=== PATIENT | male | born 1935 | race Caucasian/White ===

== ENCOUNTER 2020-07-16 15:23 | Outpatient (RCR) | payer MEDICARE, SELFPAY | END 2020-07-16 23:59 | LOC: IMMUN 15:23 | PROVIDERS: Referring Provider Family Medicine; Visit Provider Family Medicine | DX: Z23 Encounter for immunization (principal) | CPT/HCPCS: 0011A; 0012A ==

== ENCOUNTER 2021-08-19 15:33 | Outpatient (CLI) | payer MEDICARE, SELFPAY ==
--- NOTE | 2021-08-19 15:39 | CT_ITS ---
ACR Level 3 findings have been noted. An addendum which confirms receipt of the report will follow. STUDY: CT SOFT TISSUE NECK WITH CONTRAST REASON FOR EXAM: Male, 85 years old. SQUAMOUS CELL CARCINOMA L CHEEK RADIATION DOSAGE (If Supplied By Facility): CTDIvol = ( 20.03 ) mGy, DLP = ( 585.53 ) mGycm TECHNIQUE: The patient was scanned in a multi-detector CT scanner. High resolution transaxial imaging was performed following intravenous administration of IV 75mL Isovue-300. Sagittal and coronal images were reconstructed. Individualized dose optimization techniques were used for this CT. COMPARISON: None. FINDINGS: Normal bilateral parotid glands. Normal bilateral commercial lending vice president spaces. Normal bilateral parapharyngeal spaces. Normal bilateral carotid spaces. Normal bilateral sublingual and submandibular glands and spaces. Normal visualized nasopharynx. Normal retropharyngeal space. Normal perivertebral space. There are multiple calcifications within the right-sided tonsils best demonstrated image 45 coronal views. There are at least 10 tonsillar calcifications ranging from punctate to 4.1 mm. There are few punctate 1''s on the left side. Is mild enlargement of the right tonsillar tissue compared to the left. The visualized tongue, tongue base and oropharynx are normal. There is no visualized large necrotic lymph node. There are a few small symmetric subcentimeter lymph nodes. There is no demonstrated solid or cystic mass lesion within the neck soft tissues. There is no abnormal contrast enhancement. Normal epiglottis, bilateral vallecula and hypopharynx. The pre-epiglottic and paraglottic adipose spaces are normal. Normal visualized bilateral piriform sinuses, aryepiglottic folds, vocal cords, and arytenoid-cricoid articulations. Normal subglottic trachea. Normal bilateral lobes of the thyroid gland. There is an abnormal pulmonary nodule in the left upper lobe spiculated borders highly suspicious for either primary lung carcinoma or metastatic disease. It measures 1.4 x 1.9 x 1.7 cm. Normal visualized paranasal sinuses. There is multilevel degenerative changes of the cervical spine. There is multilevel disc space narrowing and facet arthropathy mild to moderate neural foraminal narrowing. There is visualized atherosclerotic disease of the aorta. There is calcification of the bilateral carotid bulbs with at least 50% narrowing of the right internal carotid artery allowing for technique. There is less than 50% stenosis of the left internal carotid artery. 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 There is no visualized significant asymmetry of the soft tissues or skin. There is no visualized visible drainable mass. CT/Soft Tissue Neck WITH Contrast IMPRESSION: There is an abnormal pulmonary nodule in the left upper lobe spiculated borders highly suspicious for primary lung carcinoma or metastatic disease. It measures 1.4 x 1.9 x 1.7 cm. Recommend consideration for CT scan of the chest for further clarification and/or PET scan. 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 There is no visualized significant asymmetry of the soft tissues or skin. There is no visualized visible drainable mass. Degenerative change of the cervical spine. No visualized acute fracture. Multiple right greater than left tonsillar calcifications. Pending Final Proof Editing
[2021-08-19 16:01] LABS: CREATININE FINGERSTICK 0.8 mg/dL (0.70-1.30); EGFR FINGERSTICK > 60.0000 mL/min (>60)
== END 2021-08-19 23:59 | disposition home or self-care (01) ==
PROVIDERS: Visit Provider Otolaryngology
DX: C76.0 Malignant neoplasm of head, face and neck (principal)
CPT/HCPCS: 70491; Q9967

== ENCOUNTER 2021-08-29 07:16 | Day surgery (SDC) | payer MEDICARE, SELFPAY ==
--- NOTE | 2021-08-29 | LES_PTH ---
PATIENT: MARGI PÉREZ LOC: [facility] [place] U#:[id number] AGE/SX: 85/M ROOM: RE08/29/[address]: Dr. Jesus Antonio MD : 1935 BED: DIS: 08/29/2021 SPEC #: [id number] RECD: 08/29/21 09:19 STATUS: PROSPER MERRY #: [id number] MARVIN: 08/29/21 00:[address]: Jesus Antonio DEPT: SURGICAL PATHOLOGY RECD BY: Flakita Palmer ENTERED: 08/29/21 10:02 SP TYPE: Lesion OTHR DR: Dr. 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 Left cheek squamous cell carcinoma, FS, short suture at 12 o?clock, superior, long suture at 3 o?clock, posterior, B ? Left neck biopsy, FS, short suture at 12 o?clock, superior, long suture at 3 o?clock, posterior, C ? Right nasal incisional biopsy FROZEN SECTION DIAGNOSIS A. Left cheek lesion, excision: Negative for residual carcinoma. FRANCY:south 08/29/2021 Case has been reviewed in consultation with Dr. Corbin who concurs with the above diagnosis. IDC:KATHLEEN B. Left neck lesion, excision: Actinic keratosis and extensive solar elastosis. FRANCY/KATHLEEN:south 08/29/2021 MICROSCOPIC DIAGNOSIS A. Left cheek lesion, biopsy: Actinic keratosis with focal moderate atypia. No evidence of carcinoma. See comment. B. Left neck skin lesion, biopsy: Cicatrix with nonpolarizable material and benign histiocytic reaction. Actinic change and solar elastosis. C. Right nasal lesion, incisional biopsy: Basal cell carcinoma. See comment. KATHLEEN:south 08/30/2021 COMMENT A. Margins of excision are free of dysplasia and/or atypia. C. The lesion is incompletely excised. Clinical correlation is suggested. MICROSCOPIC DESCRIPTION Slides are reviewed. GROSS DESCRIPTION A - Received fresh for frozen section diagnosis labeled with the patient's name is a specimen designated left cheek lesion. The specimen consists of a piece of cheema-white skin ellipse measuring 2.2 x 1 cm and up to 0.3 cm in thickness. The specimen is oriented as follows: short stitch ? 12 o?clock superior, long stitch 3 o?clock posterior. The specimen is inked as follows: 12 o?clock tip ? yellow, 6 o?clock tip ? green, 3 o?clock margin ? black and 9 o?clock margin ? blue. The specimen is serially sectioned and submitted entirely for frozen section diagnosis in two cassettes as follows: 1 ? tip, 2 ? rest of the specimen. / SJ:south 08/29/21 B - Received fresh for frozen section diagnosis labeled with the patient's name is a specimen designated left neck biopsy. The specimen consists of a cheema-white skin ellipse measuring 1.3 x 0.5 x 0.2 cm. The specimen is oriented as follows: short stitch ? 12 o?clock superior, long stitch 3 o?clock posterior. The specimen is inked as follows: 12 o?clock tip ? yellow, 6 o?clock tip ? green, 3 o?clock margin ? black and 9 o?clock margin ? blue. The specimen is serially sectioned and submitted entirely for frozen section diagnosis in one cassette. / SJ:south 08/29/21 C - Received in fixative is one container labeled with the patient's name and designated right nasal incisional biopsy. The specimen consists of a piece of cheema soft tissue measuring 0.3 x 0.1 x 0.1 cm. The entire specimen is submitted in one cassette. / SJ:south 08/29/2021 TC:0 CPT: 89865 x3, 00937 x2, 82517 x1
[2021-08-29 08:02] VITALS: BP 169/72; PULSE 52; RESP 16; TEMP 36.6; O2SAT 97; BMI 29.7
[2021-08-29 08:16] LABS: Bedside Glucose 234 mg/dL (74-106)
[2021-08-29] MEDS: BACITRACIN/POLYMYXIN B 15 GM Tube 1 APPLIC (09:35)
[2021-08-29] MEDS: Lidocaine 1% /Epi 1:100 (50ml) 50 ML VIAL (09:35)
--- NOTE | 2021-08-29 10:00 | PCM.DC.SUM ---
Providers Primary Care Physician: Dr. Va Avalos DO Reason For Visit: EXCISION SQUAMOUS CELL LT CHEEK Medications at Discharge Home Medications amlodipine 5 mg PO QHS 08/22/21 aspirin [Aspir-81] 81 mg PO DAILY 08/22/21 carvedilol 25 mg PO BID 08/22/21 glipizide 10 mg PO BID 08/22/21 lisinopril 40 mg PO DAILY 08/22/21 metformin 1,000 mg PO BID 08/22/21 simvastatin 40 mg PO QHS 08/22/21 terazosin 10 mg PO QHS 08/22/21 Weight / BMI Weight Weight: 93.9 kg Body Mass Index (BMI) 29.7 ABG / Lab / Microbiology Data Laboratory: Laboratory Results - last 24 hr 08/29/21 08:10: POC Glucose 234 H D/C Instructions Discharge Diet: No restrictions Discharge Activity: Return to Normal Activity Additional Dressing/Incision Instructions: Remove dressing on 08/30/21. Apply antibiotic ointment 3x/day to the sutures. May get the sutures wet on Sunday. Please Follow Up With: Jesus Antonio MD When: 10 days Meaningful Use Info Meaningful Use Diagnoses (Choose all that apply): None applicable Discharge Plan Admission Attending Provider: Jesus Antonio Primary Care Provider: Va Avalos Discharge Orders/Prescriptions Prescriptions: No Action carvedilol 25 mg Tablet 25 mg PO BID RF: 0 glipizide 10 mg Tablet 10 mg PO BID RF: 0 amlodipine 5 mg Tablet 5 mg PO QHS RF: 0 aspirin [Aspir-81] 81 mg Tablet,Delayed Release (Dr/Ec) 81 mg PO DAILY RF: 0 simvastatin 40 mg Tablet 40 mg PO QHS RF: 0 metformin 1,000 mg Tablet 1,000 mg PO BID RF: 0 lisinopril 40 mg Tablet 40 mg PO DAILY RF: 0 terazosin 10 mg Capsule 10 mg PO QHS RF: 0
--- NOTE | 2021-08-29 10:02 | PCM.OPRPT ---
Report of Operation Date of Procedure: 08/29/21 Pre-Operative Diagnosis: squamous cell carcinoma left pre auricular ulcer left neck neoplasm right nose Post-Operative Diagnosis: same Surgery/Procedure Performed:: 1.excision squamous cell carcinoma left preauricular area (2.8 x 1 cm); Intermediate repair 2. excision ulcer left neck (1.4 x .9 cm); intermediate repair 3. Incisional biopsy right nose Surgeon: Jesus Antonio Type of Anesthesia: Local Estimated Blood Loss (mL): minimal Description of Procedure: The patient was taken to the operating room on 08/29/2021. He was placed in the supine position on the operating room table. The right nose and left neck and preauricular area were prepped and draped sterilely. 1% lidocaine with epinephrine injected into the skin surrounding the intended incision sites. After sufficient vasoconstriction, an elliptical incision was made around the previously excised squamous cell carcinoma on the preauricular area. This was excised in an ellipse with a 15 blade. The lesion was marked with suture for orientation. Hemostasis was achieved with bipolar cautery. I then undermined circumferentially with iris scissors. Frozen came back as clear margins. The wound was then closed with 4-0 Vicryl for sutures and 6-0 running nylon for the skin. Next, the right neck ulcer was excised in an ellipse with a 15 blade. Hemostasis was achieved with bipolar cautery. The specimen was marked with suture and sent for frozen section. Frozen section came back as actinic changes without carcinoma. That incision was then closed with 4-0 Vicryl deep and 6-0 nylon for the skin. A pressure dressing was then applied. The right nasal lesion was addressed with a 15 blade. A small piece out of the middle of the neoplasm was taken and sent for permanent section. He was stasis was achieved with bipolar cautery. Antibiotic ointment was applied to the nose. Patient was then removed from the operating room and brought to the recovery room in stable condition. blood loss, minimal replacement none. sponge and instrument correct the end of procedure.
[2021-08-29 10:12] VITALS: BP 169/72; BP 171/91; PULSE 51; RESP 16; TEMP 36.6; O2SAT 97
== END 2021-08-29 23:59 | disposition home or self-care (01) ==
LOC: SDC 07:17 → AC 07:19
PROVIDERS: Referring Provider Otolaryngology; Visit Provider Otolaryngology
PROC: (CPT 11622; principal; 2021-08-29 08:50)
DX: C44.42 Squamous cell carcinoma of skin of scalp and neck (principal); C44.229 Squamous cell carcinoma of skin of left ear and external auricular canal; Z79.82 Long term (current) use of aspirin; Z79.899 Other long term (current) drug therapy; Z79.84 Long term (current) use of oral hypoglycemic drugs; Z87.891 Personal history of nicotine dependence; L90.5 Scar conditions and fibrosis of skin
CPT/HCPCS: 11622; 11106; 12042; 11642; 12052; 82962; 88305; 88331; 88332; J7120; A4216

== ENCOUNTER 2021-09-01 07:51 | Outpatient (CLI) | payer MEDICARE, SELFPAY ==
[2021-08-29 08:29] LABS: Prothrombin Time (Protime)PT. 12.7 SECONDS (11.7-14.9)
[2021-08-29 08:30] LABS: Partial Thromboplast Time 30.8 Seconds (24.1-36.2)
[2021-09-01] VITALS (12 sets, daily range): BP systolic 129–196; BP diastolic 63–86; PULSE 50–57; RESP 10–16; TEMP 36.1; O2SAT 94–98; BMI 29.5
--- NOTE | 2021-09-01 | IMM_PTH ---
PATIENT: MARGI PÉREZ LOC: CT U#:[id number] AGE/SX: 85/M ROOM: RE09/01/[address]: Dr. Jesus Antonio MD : 1935 BED: DIS: 09/01/2021 SPEC #: [id number] RECD: 09/01/21 14:23 STATUS: PROSPER RERaquel #: [id number] MARVIN: 09/01/21 00:[address]: Jesus Antonio DEPT: IMMUNOHISTOCHEMISTRY RECD BY: Flakita Palmer ENTERED: 09/01/21 14:25 SP TYPE: IMMUNO OTHR DR: Dr. Va Avalos, Tissues: Left upper lobe of lung, NOS Procedures: RCC (add) NAPSIN A (add) CK20 (add) CK5-6 (add) CK7 (add) CK8 (add) HEP PAR (add) TTF1 (add) Vimentin (add) Pankeratin (initial) MELAN-A (add) P40 (add) PSAP (add) S-100 (add) PHYSICIAN & [address] [address] SPECIMEN INFORMATION: Tissue Source: Left upper lobe lung, CT-guided core biopsy Clinical Info: Neoplasm Specimen Number: [id number] CPT code: 19759, 79449 x13 METHODOLOGY: Deparaffinized sections of prefer/formalin-fixed tissue or PAP/DQ stained slides are incubated with monoclonal/polyclonal antibodies/oligonucleotide probes. Localization is made via biotin free immunoperoxidase method. Appropriate controls are performed and reacted as expected. Results on target cell population are indicated in the following table: RESULTS: ANTIBODY / CLONE RESULT AE1-3 (AE1/AE3/PCK26) positive CK7 (OV-TL12/30) positive CK8 (11bvjpH68) positive, weak CK20 (KS20.8) negative Vimentin (V9) negative Melan A (A103) negative S-100 (4C4.9) negative TTF-1 (8G7G3/1) negative Napsin A (Rabbit Polyclonal) negative HepPar (OCh1E5) negative RCC (PN-15) negative PSAP (PASE/4LJ) negative CK5-6 (D5 & 1684) positive P40 (BC28) positive These tests were developed and their performance characteristics determined by [facility]. They may not have been cleared or approved by the U.S. Food and Drug Administration. The FDA has determined that such clearance or approval is not necessary. The above immunohistochemical/dualISH markers are ordered and reviewed by the Pathologist. INTERPRETATION: Left upper lobe lung, CT-guided core biopsy: Non-small cell carcinoma, favor squamous cell carcinoma. SJ:south 09/02/2021
[2021-09-01 08:07] LABS: Platelet Count 216 K/mm3 (150-450)
[2021-09-01 08:16] LABS: Prothrombin Time (Protime)PT. 12.8 SECONDS (11.7-14.9)
[2021-09-01 08:17] LABS: Partial Thromboplast Time 30.8 Seconds (24.1-36.2)
--- NOTE | 2021-09-01 08:31 | CT_ITS ---
PROCEDURE: CT GUIDED CORE NEEDLE BIOPSY OF A left upper lobe LUNG LESION INDICATION: Male, 85 years old. Left upper lobe nodule. PHYSICIAN: Dr. VALDEZ Mack CONSENT: Written informed consent was obtained having explained the risks, benefits and alternatives in detail with the patient who accepted the risks and agreed to proceed. Laboratory review and clinical assessment was performed. CONSCIOUS SEDATION PROTOCOL: The Drugs used were: 1 mg Versed, IV., and 50 mcg Fentanyl, IV. The sedation time was: 22 minutes. Conscious sedation was started at 8:59 AM and terminated at 9:21 AM. The conscious sedation protocol was independently monitored. RADIATION DOSAGE (If Supplied By Facility): CTDIvol = ( 20 ) mGy, DLP = ( 750.18 ) mGycm Individualized dose optimization techniques were used for this CT. TECHNIQUE: The patient was placed in the prone position. A noncontrast CT was performed to localize the lesion in the left upper lobe . The skin surface was prepped and draped in a sterile fashion. 1% lidocaine was used for local anesthesia. Using CT guidance, a 20 coaxial biopsy device was advanced to the periphery of the lesion. A total of 4 core specimens were obtained. The specimens were placed in a formalin solution. A post procedure CT demonstrated no adverse sequelae or pneumothorax. The patient tolerated the procedure well without adverse event. A negative biopsy does not exclude malignancy. Further imaging or clinical followup based on patient condition and degree of clinical suspicion for malignancy. Suggest rebiopsy, if biopsy results do not match with clinical scenario. CT/Biopsy/Inj or Needle Placement IMPRESSION: 1. CT directed core needle biopsy of the left upper lobe pulmonary nodule using CT image guidance with image documentation as described. Pathology results are pending. 2. Conscious Sedation protocol utilized with independent monitoring. Electronically Signed: Gelacio Hector MD at 9:45 EDT ,
[2021-09-01] MEDS: fentaNYL 100 MCG/2 ML Ampul IV (08:59)
[2021-09-01] MEDS: Midazolam 2 MG/2 ML Syringe IV (09:00)
[2021-09-01] MEDS: 0.9% Saline Lock 10 ML Syringe IV (09:01)
--- NOTE | 2021-09-01 09:15 | ASPIGT_PTH ---
PATIENT: MARGI PÉREZ LOC: [place] U#:[id number] AGE/SX: 85/M ROOM: RE09/01/[address]: Dr. Jessu Antonio MD : 1935 BED: DIS: 09/01/2021 SPEC #: [id number] RECD: 09/01/21 09:30 STATUS: PROSPER MERRY #: [id number] MARVIN: 09/01/21 09:[address]: Jesus Antonio DEPT: SURGICAL PATHOLOGY RECD BY: Lissa Jefferson ENTERED: 09/01/21 10:18 SP TYPE: ASP RAD OTHR DR: Dr. Va Avalos, DO Tissues: Lung, NOS Procedures: FNA Specimen Adequacy Special Stain Group II Surgery Specimen Level IV Imprint (control) HEADER OPERATION: Left upper lobe lung biopsy PRE-OP DIAGNOSIS: Neoplasm TISSUE SUBMITTED: Left upper lobe lung, CT-guided core biopsy MICROSCOPIC DIAGNOSIS Left upper lobe lung, CT-guided core biopsy: Non-small cell carcinoma, favor squamous cell carcinoma. See comment. FRANCY:south 09/02/2021 COMMENT The specimen is evaluated at the time of biopsy by Dr. Colunga. Immediate Evaluation = Malignant cells present derived from non-small cell carcinoma. Immunohistochemistry ([id number]) supports the above diagnosis. Molecular studies on the tumor can be performed if clinically indicated. Please notify the laboratory if they are needed. MICROSCOPIC DESCRIPTION Slides are reviewed. GROSS DESCRIPTION Received in fixative is one container labeled with the patient's name and designated left lung. The specimen consists of multiple irregular fragments of cheema soft tissue that in aggregate measure 1 x 0.1 x 0.1 cm. The specimen is totally submitted in one cassette. Three touch imprints are prepared at the time of core biopsy. / FRANCY:south 09/01/2021 TC:0 CPT: 85732, 10527 ADDENDUM ADDENDUM ADDENDUM ADDENDUM ADDENDUM ADDENDUM ADDENDUM ADDENDUM ADDENDUM ADDENDUM ADDENDUM ADDENDUM ADDENDUM ADDENDUM ADDENDUM 02/19/2025 11:08 ADDENDUM 03/09/2025 11:29 ADDENDUM 03/17/2025 09:36 ADDENDUM 02/19/2025 11:08 ADDENDUM 02/19/2025 11:08 ADDENDUM 02/19/2025 11:08 ADDENDUM 02/19/2025 11:08 This addendum is added to incorporate an outside pathology consultation report. The case was examined at [facility] by Dr. Rivero (#[id number]) and the following diagnosis was rendered. A. Left lung, upper lobe, CT-guided core biopsy: Squamous cell carcinoma, focally keratinizing (see comment). Diagnosis comment: Immunohistochemical stains received for review show that the tumor cells are cytokeratin 5/6, pankeratin, cytokeratin 8, cytokeratin 7, p40, and negative for TTF-1, Napsin A, RCC, hepatocyte, PSAP, MART-1, and S100. These results support the above diagnosis. Please see complete above mentioned consultation report in EMR This addendum is added to incorporate an outside pathology consultation report. The case was examined at [facility] ([id number]) and the following diagnosis was rendered. ALK IHC: Negative Interpretation Comment And Reference Range: Reference range for ALK (D5F3): Positive: Strong and diffuse cytoplasmic staining in any number of tumor cells. Equivocal: Weak and/or focal cytoplasmic staining Negative: Absence of cytoplasmic staining tumor cells. Interpretation comments: As fluorescent in situ hybridization can help resolve equivocal IHC results, any equivocal results will be reflexed to ALK-FISH. The molecular study's results will be reported separately. Please see complete above mentioned consultation report in EMR This addendum is added to incorporate an outside pathology consultation report. The case was examined at [facility] and the following diagnosis was rendered. FISH for RET REPORT: A. Lung, left upper core, CT-guided core biopsy: Number of nuclei scored: 50 RET Rearrangement: Result: 2% Reference Range: (0-14%) INTERPRETATION: Negative for rearrangement involving the RET gene at 10q11.21. Clinical and pathological correlation is recommended. 20% of nuclei show a loss of the RET (10q11.21) gene locus or monosomy of chromosome 10 and 24% of nuclei show a gain of the RET (10q11.21) gene locus or polysomy of chromosome 10. FISH for ROS1 REPORT: A. Lung, left upper lobe, CT-guided core biopsy: Number of nuclei scored: 50 ROS1 Rearrangement: Result: 0% Reference Range: (0-14%) INTERPRETATION: Negative for a rearrangement involving the ROS1 gene at 6q22.1. Clinical and pathological correlation is recommended. 22% of nuclei show a loss of the ROS1 (6q22.1) gene locus or monosomy of chromosome 6 and 12% of nuclei show a gain of the ROS1 (6q22.1) gene locus or polysomy of chromosome 6. Targeted Oncology Panel Next Generation Sequencing Report: % Tumor: 10 CASE SUMMARY: No clinically significant single nucleotide variants, insertions, deletions, copy number gains, RNA fusions or aberrant transcripts were detected in this specimen. Clinical and histopathological correlation is recommended. *Unless otherwise stated, all assay hotspot regions have been tested (See evaluated genes below) and only positive genes are reported. * RESULTS: Single Nucleotide Variants / Indels: None detected. Copy Number Gains: None detected. RNA Fusions and Aberrant Transcripts: None detected. Variant Interpretations: None detected. Variants of uncertain significance detected: None detected. Please see complete above mentioned consultation report in EMR
--- NOTE | 2021-09-01 09:30 | RAD_ITS ---
STUDY: X-RAY CHEST REASON FOR EXAM: Male, 85 years old. MIESHA BX -- Immediately post lung biopsy TECHNIQUE: AP inspiration and expiration views. COMPARISON: None. FINDINGS: The patient is status post left lung biopsy. No evidence pneumothorax on the immediate post left lung biopsy radiographs. RAD/Chest Insp/Exp 2 View IMPRESSION: No evidence of pneumothorax on the immediate post left lung biopsy radiographs. Electronically Signed: Gelacio Hector MD at 9:55 EDT ,
[2021-09-01] MEDS: Lidocaine 2% (20 ml mdv) 20 ML Vial INFILT (09:46)
--- NOTE | 2021-09-01 11:10 | RAD_ITS ---
STUDY: X-RAY CHEST REASON FOR EXAM: Male, 85 years old. MIESHA BX -- 2 hours post lung biopsy TECHNIQUE: AP inspiration and expiration views. COMPARISON: Comparison is made with prior study done earlier today. FINDINGS: No evidence of pneumothorax on the two-hour post left lung biopsy radiographs. RAD/Chest Insp/Exp 2 View IMPRESSION: No evidence of pneumothorax on the two-hour post left lung biopsy radiographs. Electronically Signed: Gelacio Hector MD at 12:00 EDT ,
== END 2021-09-01 23:59 | disposition home or self-care (01) ==
PROVIDERS: Referring Provider Otolaryngology; Visit Provider Otolaryngology
DX: C34.12 Malignant neoplasm of upper lobe, left bronchus or lung (principal); E11.9 Type 2 diabetes mellitus without complications; Z79.82 Long term (current) use of aspirin; Z79.899 Other long term (current) drug therapy; Z79.84 Long term (current) use of oral hypoglycemic drugs; I10 Essential (primary) hypertension; Z87.891 Personal history of nicotine dependence; C44.42 Squamous cell carcinoma of skin of scalp and neck
CPT/HCPCS: 32408; 36415; 71046; 77012; 85049; 85610; 85730; 88172; 88305; 88313; 88341; 88342; 99156; J7040; A4216; C2613

== ENCOUNTER 2021-09-21 09:38 | Outpatient (CLI) | payer MEDICARE, SELFPAY | END 2021-09-21 23:59 | disposition home or self-care (01) | PROVIDERS: Referring Provider Internal Medicine Hematology & Oncology; Visit Provider Internal Medicine Hematology & Oncology | DX: Z00.00 Encounter for general adult medical examination without abnormal findings (principal) ==

== ENCOUNTER → 2021-09-28 | Outpatient (CLI) | payer MEDICARE, SELFPAY | END | disposition home or self-care (01) | PROVIDERS: Referring Provider Internal Medicine Hematology & Oncology; Visit Provider Internal Medicine Hematology & Oncology | DX: C33 Malignant neoplasm of trachea (principal); C34.80 Malignant neoplasm of overlapping sites of unspecified bronchus and lung ==

== ENCOUNTER → 2021-10-05 | Outpatient (CLI) | payer MEDICARE, SELFPAY ==
--- NOTE | 2021-10-05 11:41 | PET_ITS ---
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 Individualized dose optimization techniques were used for this CT.? TECHNIQUE: Whole-body multiplanar pet study performed after patient was administered 11.5 mCi of F-[address] non[address] CT also obtained COMPARISON: CT from 08/19/2021. FINDINGS: There is increased activity in the previously identified noncalcified nodule in the left upper lobe which has undergone previous biopsy. Uptake within this measures between 1.73 and 3.29. It is just above the threshold level to suspect a metabolically active neoplastic process. However, since it was biopsied, the histopathology should already be known. There is no other area of increased PET activity identified. There is normal physiologic activity noted in the brain, salivary glands, liver, spleen, heart, GI and systems. The noncontrasted CT scan shows no suspicious abnormality in the visualized brain parenchyma no suspicious airway narrowing or deviation, no suspicious bulky neck adenopathy. Lung windows are clear aside from the previously noted nodule in the left upper lobe which has undergone biopsy. There is no other suspicious noncalcified mass or nodule. There are chronic interstitial changes. No suspicious solid organ abnormality, there are tiny gallstones present. No suspicious mesenteric or retroperitoneal adenopathy. Bony structures show degenerative change PET/PET/CT Tumor Base -Thigh Init IMPRESSION: Slightly increased PET activity within a previously noted and biopsied noncalcified nodule in the left upper lobe. Histopathology should be known, the mildly increased PET activity of L3 suggests neoplastic process Electronically Signed: Felipe Cali MD at 11:39 EDT ,
== END | disposition home or self-care (01) ==
PROVIDERS: Referring Provider Internal Medicine Hematology & Oncology; Visit Provider Internal Medicine Hematology & Oncology
DX: C33 Malignant neoplasm of trachea (principal); C34.80 Malignant neoplasm of overlapping sites of unspecified bronchus and lung; D49.1 Neoplasm of unspecified behavior of respiratory system
CPT/HCPCS: 78814; 78815; A9588

== ENCOUNTER → 2021-10-18 | Outpatient (CLI) | payer MEDICARE, SELFPAY ==
[2021-10-18 14:26] LABS: Platelet Count 214 K/mm3 (150-450)
[2021-10-18 14:37] LABS: International Normalized Ratio 1.1; Prothrombin Time (Protime)PT. 13.4 SECONDS (11.7-14.9)
[2021-10-18 14:38] LABS: Partial Thromboplast Time 29.8 Seconds (24.1-36.2)
== END | disposition home or self-care (01) ==
PROVIDERS: Referring Provider Nurse Practitioner Acute Care; Visit Provider Nurse Practitioner Acute Care
DX: C34.90 Malignant neoplasm of unspecified part of unspecified bronchus or lung (principal)
CPT/HCPCS: 36415; 85049; 85610; 85730

== ENCOUNTER 2021-10-21 12:10 | Day surgery (SDC) | payer MEDICARE, SELFPAY ==
--- NOTE | 2021-10-21 | ASPIG_PTH ---
PATIENT: MARGI PÉREZ LOC: EN U#:[id number] AGE/SX: 85/M ROOM: RE10/21/[address]: Dr. Christian Greene MD : 1935 BED: DIS: 10/21/2021 SPEC #: [id number] RECD: 10/21/21 14:42 STATUS: PROSPER MERRY #: [id number] MARVIN: 10/21/21 00:[address]: Christian Greene DEPT: CYTOLOGY RECD BY: Freddy Sadler ENTERED: 10/21/21 14:43 SP TYPE: ASP OUT OTHR DR: Dr. Va Avalos, DO Tissues: A - Lung, NOS B - Lung, NOS C - Lung, NOS D - Lung, NOS E - Lung, NOS F - Lung, NOS G - Lung, NOS H - Lung, NOS I - Lung, NOS Procedures: FNA Specimen Adequacy Special Stain Group II Surgery Specimen Level IV Cytology Other HEADER OPERATION: EBUS PRE-OP DIAGNOSIS: History of squamous cell carcinoma lung TISSUE SUBMITTED: A - EBUS, TBNA, site 7 #1, B - EBUS, TBNA, site 7 #2, C - EBUS, TBNA, site 7 #3, D - EBUS, TBNA, site 7 #4, E - EBUS, TBNA, site 10L #5, F - EBUS, TBNA, site 10L #6, G - EBUS, TBNA, site 10L #7, H - EBUS, TBNA, site 7 fluid, I - EBUS, TBNA, site 10L fluid DIAGNOSIS CYTOLOGY A. EBUS, TBNA, site 7 #1: Respiratory epithelial cells only. Negative for malignant cells. B. EBUS, TBNA, site 7 #2: Negative for malignant cells. Respiratory epithelial cells and lymphocytes noted. Adequate for evaluation. C. EBUS, TBNA, site 7 #3: Negative for malignant cells. Respiratory epithelial cells and lymphocytes noted. Adequate for evaluation. D. EBUS, TBNA, site 7 #4: Negative for malignant cells. Respiratory epithelial cells and lymphocytes noted. Adequate for evaluation. E. EBUS, TBNA, site 10L #5: Predominantly respiratory epithelial cells. A few lymphocytes. Negative for malignant cells. F. EBUS, TBNA, site 10L #6: Negative for malignant cells. Respiratory epithelial cells and lymphocytes noted. Adequate for evaluation. G. EBUS, TBNA, site 10L #7: Predominantly respiratory epithelial cells, a few lymphocytes are noted. Negative for malignant cells. H. EBUS, TBNA, site 7 fluid (cell block): Negative for malignant cells. See cytology study. I. EBUS, TBNA, site 10L fluid (cell block): Negative for malignant cells. See cytology study. SJ:south 10/24/2021 COMMENT The specimen is evaluated at the time of procedure by Dr. Colunga. Rapid Onsite Evaluation: A. EBUS, TBNA, site 7 #1: Respiratory epithelial cells only. B. EBUS, TBNA, site 7 #2: Negative for malignant cells. Respiratory epithelial cells and lymphocytes noted. Adequate for evaluation. C. EBUS, TBNA, site 7 #3: Negative for malignant cells. Respiratory epithelial cells and lymphocytes noted. Adequate for evaluation. D. EBUS, TBNA, site 7 #4: Negative for malignant cells. Respiratory epithelial cells and lymphocytes noted. Adequate for evaluation. E. EBUS, TBNA, site 10L #5: Predominantly respiratory epithelial cells. A few lymphocytes. Negative for malignant cells. F. EBUS, TBNA, site 10L #6: Negative for malignant cells. Respiratory epithelial cells and lymphocytes noted. Adequate for evaluation. G. EBUS, TBNA, site 10L #7: Respiratory epithelial cells only. Please make reference to previous specimen ([id number]) left upper lobe lung, CT-guided core biopsy with diagnosis of ?non-small cell carcinoma, favor squamous cell carcinoma.? Case has been reviewed in consultation with Dr. Corbin who concurs with the above diagnosis. IDC:AM CYTOLOGY STUDY Slides are reviewed. H & I. Numerous lymphocytes, respiratory epithelial cells and hyaline cartilage are noted. CYTOLOGY GROSS A - Received labeled with the patient's name and and designated EBUS, TBNA, site 7 #1. The specimen consists of two stained smears for REJI (Rapid Onsite Evaluation). B - Received labeled with the patient's name and and designated EBUS, TBNA, site 7 #2. The specimen consists of two stained smears for REJI. C - Received labeled with the patient's name and and designated EBUS, TBNA, site 7 #3. The specimen consists of two stained smears for REJI. D - Received labeled with the patient's name and and designated EBUS, TBNA, site 7 #4. The specimen consists of two stained smears for REJI. E - Received labeled with the patient's name and and designated EBUS, TBNA, site 10L #5. The specimen consists of two stained smears for REJI. F - Received labeled with the patient's name and and designated EBUS, TBNA, site 10L #6. The specimen consists of two stained smears for REJI. G - Received labeled with the patient's name and and designated EBUS, TBNA, site 10L #7. The specimen consists of two stained smears for REJI. H - Received in RPMI is 20 ml of pink, needle rinsed fluid labeled with the patient's name and and designated EBUS, TBNA, site 7. The specimen is submitted for cell block preparation. I - Received in RPMI is 20 ml of pink, needle rinsed fluid labeled with the patient's name and and designated EBUS, TBNA, site 10L. The specimen is submitted for cell block preparation. / SJ:rg 10/21/2021 TC:5 CPT: 41710 x2, 54820 x2, 50201 x2, 20827 x5
[2021-10-21 12:38] VITALS: BP 153/83; PULSE 52; RESP 16; TEMP 36.2; O2SAT 98; BMI 28.4
[2021-10-21] MEDS: Lactated Ringers 1,000 ML 15 ML IV (12:43)
--- NOTE | 2021-10-21 12:47 | HP.PCM_ITS ---
History and Physical Date of Admission: 10/21/21 Patient seen and examined prior to the procedure. Consent was reviewed with the patient and his . Patient did report that he has had a skin lesion removed from his ear that was squamous cell cancer. Physical exam was performed and there is been no significant change compared to below. Signs and symptoms of complications were reviewed in detail. Patient was given a plan for follow-up. Anticipate patient will follow-up with his primary oncologist pending results. Do not anticipate any endobronchial interventions outside of the EBUS fine- needle aspirations. Patient is aware and agrees with the plan, but states that biopsies can be done if noted. Assessment and Plan Assessment and Plan (1) Squamous cell lung cancer: Status: Acute Orders: Orders: Prothrombin Time w/INR Today Partial Thromboplast Time Today Platelet Count Today Plan - Christine Diaz LIQUID YEAST SUPERVISOR, LIQUID YEAST SUPERVISOR-C: Discussed this case with Dr. Greene. Reviewed risks and benefits with the patient and his . After consideration, the patient would like to proceed with the endobronchial ultrasound-guided biopsy. Plan for the patient to follow-up with Dr. Greene in approximately 3 months. In the meantime, we will obtain blood work to make sure that the patient is not at increased risk for bleeding to occur during the EBUS procedure. He has been advised that he will be notified by phone when to hold the aspirin. He has been encouraged to contact the office with any new or worsening symptoms, or if he develops any questions. He and his are both agreeable with this plan. I have spent 60 minutes today reviewing labs, records and history. Time includes coordinating care, and discussion with Dr Greene. This also includes time I spent with the patient for exam, treatment plan and education as well as documenting clinical information. (2) Easy bruising: Status: Acute Plan - Christine Diaz LIQUID YEAST SUPERVISOR, LIQUID YEAST SUPERVISOR-C: Need to evaluate bleeding risk. Plan Details Other Orders: Orders: Bronchoscopy Today HPI ebus Chief Complaint: Here to discuss a scope procedure HPI Comments Details: This patient presents to the office today for initial consultation regarding concern for mediastinal lymphadenopathy. He is ambulatory, currently on room air and accompanied today by his . He reports that he was seen in consultation by first his medical oncologist and then a radiation oncologist. In determining appropriate management of his known lung cancer, consistent with squamous cell cancer, he has been advised that it would be beneficial in determining staging and treatment to have a bronchoscopy. The patient admits that he is willing to undergo chemotherapy and radiation but he has already made the decision that he would not be willing to participate in surgical excision. Currently he does have shortness of breath on exertion, it has not progressed. He has a cough that is sometimes productive of clear to pale yellow-colored sputum. He denies any wheezing, chest tightness, chest pain or palpitations. He is not have any fever, chills or body aches. 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 He has never seen a cash specialist. He was a smoker but quit smoking completely approximately 10- 12 years ago. He has never been prescribed any inhalers. Past medical family history is consistent for: Mother had hypertension. Father health is unknown. 1 brother has diabetes mellitus and heart problems. He has 3 living children all of good health. Unfortunately, 1 child was lost in adolescence by abduction. Radiation oncology office note visit reviewed. Documents that this man is a [id number] smoking history, history of skin squamous cell carcinoma. CT scan of the neck August 19, 2021 showed no cervical lymphadenopathy but did have an incidental finding of a lung nodule. This nodule had a spiculated border and measured 1.4 x 1.9 x 1.7 cm. Excision of that left lymph node on August 29, 2021 was negative for residual carcinoma. There was a lesion on the nose removed that was positive for basal cell carcinoma. CT-guided biopsy of the left upper lobe on September 01, 2021 was consistent with non-small cell carcinoma, favor squamous cell carcinoma. PET scan on October 05, 2021 showed hypermetabolic nodule in the left upper lobe, otherwise no other suspicious metabolic lesion. Medical oncology office note also reviewed. Added input of note is that the patient wishes to avoid surgery and would like to discuss the possibility of SBRT. In order to proceed with this it is necessary to have mediastinal staging. Intake Vital Signs 10/18/21 13:16 Height 5 ft 10 in Weight: 202 lb 8 oz BMI 29.0 BP 158/75 H Blood Pressure Location Rt brachial Position Sitting Respiration 16 Pulse 50 L Pulse Source Monitor Temp 97.4 F L Temperature Source Temporal Artery Pulse Oximetry (%) 97 Oxygen Delivery Method room air Intake Visit Reasons: ebus Allergies No Known Allergies Allergy (Verified 10/18/21 13:18) Medications amlodipine 5 mg PO QHS 08/22/21 [History Confirmed 10/18/21] aspirin [Aspir-81] 81 mg PO DAILY 08/22/21 [History Confirmed 10/18/21] carvedilol 25 mg PO BID 08/22/21 [History Confirmed 10/18/21] glipizide 10 mg PO BID 08/22/21 [History Confirmed 10/18/21] lisinopril 40 mg PO DAILY 08/22/21 [History Confirmed 10/18/21] metformin 1,000 mg PO BID 08/22/21 [History Confirmed 10/18/21] simvastatin 40 mg PO QHS 08/22/21 [History Confirmed 10/18/21] terazosin 10 mg PO QHS 08/22/21 [History Confirmed 10/18/21] insulin glargine 100 unit/mL (3 mL) subcutaneous pen 20 unit SUBCUT DAILY ml 10/18/21 [History Confirmed 10/18/21] PFSH Medical History (Updated 10/18/21 @ 14:25 by Christine Diaz LIQUID YEAST SUPERVISOR, LIQUID YEAST SUPERVISOR-C) Alcohol use Anemia Arthritis Cancer Diabetes Dietary restriction Easy bruising Heartburn High cholesterol History of diverticulitis History of stress test Hx of bladder cancer Hypertension Leg cramps Non-smoker Wears dentures Wears glasses Wears hearing aid Surgical History (Reviewed 10/18/21 @ 13:34 by Christine Diaz LIQUID YEAST SUPERVISOR, LIQUID YEAST SUPERVISOR-C) Hx of colonoscopy Hx of vasectomy Social History (Reviewed 10/18/21 @ 13:34 by Christine Diaz LIQUID YEAST SUPERVISOR, LIQUID YEAST SUPERVISOR-C) Smoking Status: Former smoker Review of Systems Resp Respiratory: Yes as per HPI Exam Const Constitutional: Positive conversant, cooperative, in no acute respiratory distress, healthy appearing, well developed, well nourished and good hygiene Head Head: Yes normocephalic and Yes atraumatic Eyes Eye: Positive clear conjunctiva; Negative nystagmus or scleral abnormality Ears Ear: Positive hard of hearing and external ears normal Nose Nose: Yes other (face mask in place) Neck Neck: Positive normal visual inspection, full ROM and trachea midline Chest Wall Chest: Positive normal inspection of the chest and symmetric chest movement; Negative increased A/P diameter Resp lung sounds: Positive clear to auscultation, good air exchange, normal expiratory time and normal respiratory effort; Negative diminished lung sounds, wheezes, rhonchi or rales Cardio Cardiac: Positive regular rate, regular rhythm, S1 normal and S2 normal; Negative murmur GI GI: Positive normal to inspection Genitourinary: Positive deferred Musc Musculoskeletal: Positive using an assistive device for ambulation and ROM normal; Negative kyphosis or scoliosis Skin Pulmonary Skin Exam: Positive intact; Negative lesion, rash or ulcers Extremities Extremities: No clubbing and No cyanosis Neuro Neurologic: Yes no focal neuro deficits, Yes conversant, Yes cooperative, Yes normal cognition, Yes normal coordination, Yes normal concentration and Yes understands questions Psych Appearance: Positive grossly normal, eye contact and well kempt Mental Status: Positive mental status grossly normal Mood: Positive congruent mood Affect: Positive normal affect Coding Level of Care Code Off vis,new,level 4 Diagnoses Squamous cell lung cancer C34.90 Easy bruising R23.8 Assessment & Plan Assessment/Plan (1) Squamous cell lung cancer:
[2021-10-21 12:51] LABS: Bedside Glucose 178 mg/dL (74-106)
[2021-10-21] MEDS: Lidocaine 2% Jelly 1 APPLIC Tube (13:40)
[2021-10-21 14:38] VITALS: BP 93/50; PULSE 50; RESP 16; TEMP 36.8; O2SAT 97
[2021-10-21 14:45] VITALS: BP 108/56; PULSE 53; RESP 17; O2SAT 97
[2021-10-21 15:00] VITALS: BP 120/88; PULSE 49; RESP 16; O2SAT 97
--- NOTE | 2021-10-21 15:05 | OP.BRONCH_ITS ---
Patient Name: Arnav Bee Procedure Date: 10/21/2021 1:14 PM Date of : 1935 Age: 85 Procedure: Bronchoscopy Indications: Known lung cancer Providers: Christian Greene MD Referring MD: Va Avalos Medicines: Lidocaine 2% applied to the tracheobronchial tree 4 mL, General Anesthesia Complications: No immediate complications Procedure: Pre-Anesthesia Assessment: - A History and Physical has been performed. The patient's medications, allergies and sensitivities have been reviewed. - The risks and benefits of the procedure and the sedation options and risks were discussed with the patient. All questions were answered and informed consent was obtained. - Patient identification and proposed procedure were verified prior to the procedure by the physician, the nurse and the certified tower climber. The procedure was verified. - After reviewing the risks and benefits, the patient was deemed in satisfactory condition to undergo the procedure. After I obtained informed consent, the scope was passed under direct vision. Throughout the procedure, the patient's blood pressure, pulse, and oxygen saturations were monitored continuously. The bronchoscope was introduced through the mouth, via laryngeal mask airway and advanced to the tracheobronchial tree. The ultrasound bronchoscope was introduced through the mouth, via laryngeal mask airway and advanced to the tracheobronchial tree. The procedure was accomplished without difficulty. The patient tolerated the procedure well. Findings: The laryngeal mask airway is in good position. The vocal cords appear normal. The subglottic space is normal. The trachea is of normal caliber, but with some loss is horizontal diameter. No tracheomalacia appreciated. The mayra is sharp. The tracheobronchial tree was examined to at least the first subsegmental level. Bronchial mucosa and anatomy are normal; there are no endobronchial lesions, and no secretions. Some bronchomalacia appreciated, but opened appropriately with inhalation. No significant secretions. The scope was withdrawn and replaced with the EBUS bronchoscope to accomplish the ultrasound examination. Lymph Nodes: An endobronchial ultrasound endoscope was utilized to systematically examine the subcarinal mediastinum (level 7) and left hilar region (level 10L) in order to assist with fine needle aspiration. Lymph node sizing was performed via endobronchial ultrasound for known lung cancer. Sampling by transbronchial needle aspiration was also performed using an Olympus EBUS-TBNA 19 gauge needle in the subcarinal mediastinum (level 7) and left hilar region (level 10L) and sent for routine cytology. - The 7 (subcarinal) node was 15 mm by EBUS and non-hypermetabolic via PET scan. Four samples with the needle were obtained. - The 10L (hilar) node was 16 mm by EBUS and non-hypermetabolic via PET scan. Three samples with the needle were obtained. Lymph Nodes: A PET scan was found to be hypermetabolic in the in the left upper lobe nodule only. There were no positive mediastinal lymph nodes Lymph Nodes: Rapid On-Site Evaluation (REJI): Preliminary cytology was suggestive of benign-appearing lymphoid tissue (final results are pending) in the subcarinal mediastinum (level 7). Preliminary cytology was suggestive of benign-appearing lymphoid tissue (final results are pending) in the left hilar region (level 10L). Impression: - Known lung cancer - The airway examination was normal. - Endobronchial ultrasound was performed. - Lymph node sizing and sampling was performed. - Rapid On-Site Evaluation (REJI): Preliminary cytology was suggestive of benign-appearing lymphoid tissue in node level 7 and of benign-appearing lymphoid tissue in node level 10L (final results are pending). Recommendation: - The patient will be observed post-procedure, until all discharge criteria are met. - Await cytology results. - Follow up with referring physician in 1 week. - The patient was advised to call or return to the clinic if there are signs or symptoms suggesting a complication/adverse reaction from the procedure. Procedure Code(s): --- Professional --- 30802, Bronchoscopy, rigid or flexible, including fluoroscopic guidance, when performed; with endobronchial ultrasound (EBUS) guided transtracheal and/or transbronchial sampling (eg, aspiration[s]/biopsy[ies]), 3 or more mediastinal and/or hilar lymph node stations or structures Diagnosis Code(s): --- Professional --- C34.90, Malignant neoplasm of unspecified part of unspecified bronchus or lung R09.89, Other specified symptoms and signs involving the circulatory and respiratory systems CPT copyright 2017 [employer]. All rights reserved. The codes documented in this report are preliminary and upon head of it review may be revised to meet current compliance requirements. MD Christian Escalona MD 10/21/2021 3:04:24 PM This report has been signed electronically. Number of Addenda: 0 Note Initiated On: 10/21/2021 1:14 PM
[2021-10-21 15:14] VITALS: BP 132/63; BP 153/83; PULSE 59; RESP 16; TEMP 36.1; O2SAT 94
[2021-10-21 15:41] VITALS: BP 153/83
== END 2021-10-21 15:51 | disposition home or self-care (01) ==
LOC: EN 12:12 → AC 12:17
PROVIDERS: Visit Provider Internal Medicine Critical Care Medicine
PROC: BB4BZZZ Ultrasonography of Pleura (ICD-10-PCS; CPT 31629; principal; 2021-10-21 13:00)
DX: C34.90 Malignant neoplasm of unspecified part of unspecified bronchus or lung (principal); E11.9 Type 2 diabetes mellitus without complications; Z79.4 Long term (current) use of insulin; R09.89 Other specified symptoms and signs involving the circulatory and respiratory systems; I10 Essential (primary) hypertension; E78.00 Pure hypercholesterolemia, unspecified; Z79.84 Long term (current) use of oral hypoglycemic drugs; Z79.82 Long term (current) use of aspirin; Z79.899 Other long term (current) drug therapy; Z87.891 Personal history of nicotine dependence
CPT/HCPCS: 31629; 31653; 82962; 88161; 88172; 88305; 88313; J7120; J2405

== ENCOUNTER → 2022-03-14 | Outpatient (CLI) | payer MEDICARE, SELFPAY ==
--- NOTE | 2022-03-15 10:23 | PFT ---
INTRODUCTION: The patient is an 86-year-old male that presents for pulmonary function studies secondary to a diagnosis of malignant neoplasm. Respiratory therapy reported good patient effort. Bronchodilators were used during testing. INTERPRETATION: Forced expiration spirometry demonstrates the presence of a moderate large airways obstructive ventilatory defect. There was no significant response to aerosolized bronchodilators. Spirograms are of good quality and plateau gradually indicating slow emptying of the lungs. Body plethysmography was performed and revealed a decreased TLC to 4.83 L, 77% of predicted, indicative of a mild restrictive ventilatory impairment. Diffusing capacity by single breath CO was within normal limits. 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
== END | disposition home or self-care (01) ==
LOC: PSN 12:12
PROVIDERS: Visit Provider Internal Medicine Critical Care Medicine
DX: C34.90 Malignant neoplasm of unspecified part of unspecified bronchus or lung (principal)
CPT/HCPCS: 94060; 94726; 94729